=== PATIENT | male | born 1950 | race Caucasian/White ===

== ENCOUNTER 2017-10-28 15:01 | Emergency (ER) | payer MEDICARE, MEDICAID ==
[~2017-10-28] VITALS: Ht 180.3 cm; Wt 75.0 kg
[2017-10-28] MEDS ORDERED: ACETAMINOPHEN 500 MG TABLET ONE (15:38)
[2017-10-28 15:52] LABS: BASOPHILS # (AUTO) 0.04 x10^3/uL (0-0.1); BASOPHILS % (AUTO) 1 % (0-1); EOSINOPHILS # (AUTO) 0.18 x10^3/uL (0-0.4); EOSINOPHILS % (AUTO) 3 % (1-7); LYMPHOCYTES # (AUTO) 2.04 x10^3/uL (1-3.4); LYMPHOCYTES % (AUTO) 33 % (22-44); MD NO; MEAN CORPUSCULAR HEMOGLOBIN 32.8 pg (27.5-34.5); MEAN CORPUSCULAR HGB CONC 34.2 g/dL (33.2-36.2); MEAN CORPUSCULAR VOLUME 95.9 fL (81-97); MEAN PLATELET VOLUME 7.8 fL (7.4-10.4); MONOCYTES # (AUTO) 0.54 x10^3/uL (0.2-0.8); MONOCYTES % (AUTO) 9 % (2-9); NEUTROPHILS # (AUTO) 3.32 x10^3/uL (1.8-6.8); NEUTROPHILS % (AUTO) 54 % (42-75); PLATELET COUNT 352 x10^3/uL (130-400); RED BLOOD COUNT 4.65 x10^6/uL (4.38-5.82); RED CELL DISTRIBUTION WIDTH 13.1 % (9.4-14.8)
[2017-10-28 15:59] LABS: ALBUMIN 4.2 g/dL (3.4-5.0); ANION GAP 7 mmol/L (5-15); CALCIUM 8.8 mg/dL (8.5-10.1); CHLORIDE 115 mmol/L (98-107)
[2017-10-28] MEDS ORDERED: ACETAMINOPHEN 500 MG TABLET PO ONE (16:00)
[2017-10-28 16:05] LABS: CREATININE 1.14 mg/dL (0.7-1.3); TROPONIN I < 0.015 ng/mL (0.000-0.045)
[2017-10-28 16:32] VITALS: BP 137/78
== END 2017-10-28 17:19 | disposition home or self-care (01) ==
LOC: ED 16:50
DX: M25.512 Pain in left shoulder (principal); M79.622 Pain in left upper arm
CPT/HCPCS: 36415; 71045; 72050; 80048; 82040; 84484; 85025; 93005; 99285

== ENCOUNTER 2017-11-14 03:06 | Emergency (ER) | payer MEDICARE, MEDICAID ==
[~2017-11-14] VITALS: Ht 180.3 cm; Wt 75.0 kg
[2017-11-14 03:15] VITALS: BP 158/88
[2017-11-14] MEDS ORDERED: KETOROLAC 30 MG/1 ML ONE (03:21)
[2017-11-14] MEDS ORDERED: HALOPERIDOL 5 MG/ML ONE (03:21)
[2017-11-14] MEDS ORDERED: KETOROLAC 30 MG/1 ML IM ONE (03:30)
[2017-11-14] MEDS ORDERED: HALOPERIDOL 5 MG/ML IM ONE (03:30)
== END 2017-11-14 04:47 | disposition home or self-care (01) ==
LOC: ED 04:17
DX: M79.652 Pain in left thigh (principal); M25.562 Pain in left knee; Z72.9 Problem related to lifestyle, unspecified; Z87.891 Personal history of nicotine dependence; Z21 Asymptomatic human immunodeficiency virus [HIV] infection status
CPT/HCPCS: 96372; 99284; J1630; J1885

== ENCOUNTER 2018-03-13 09:45 | Emergency (ER) | payer MEDICARE, MEDICAID ==
[~2018-03-13] VITALS: Ht 180.3 cm; Wt 72.7 kg
[2018-03-13 09:47] VITALS: BP 137/98
[2018-03-13] MEDS ORDERED: DIAZEPAM 5 MG TABLET ONE (10:13)
[2018-03-13] MEDS ORDERED: KETOROLAC 30 MG/1 ML ONE (10:13)
--- NOTE | 2018-03-13 10:20 | NUR ---
patient safe in [facility], has refused valium stating "that shit doesn't even touch me anymore," patient going to xray via gurney.
[2018-03-13] MEDS ORDERED: DIAZEPAM 5 MG TABLET PO ONE (10:30)
[2018-03-13] MEDS ORDERED: KETOROLAC 30 MG/1 ML IM ONE (10:30)
== END 2018-03-13 11:29 | disposition home or self-care (01) ==
LOC: ED 10:20
DX: S16.1XXA Strain of muscle, fascia and tendon at neck level, initial encounter (principal); Z87.891 Personal history of nicotine dependence; Z79.899 Other long term (current) drug therapy; Z21 Asymptomatic human immunodeficiency virus [HIV] infection status; Z72.9 Problem related to lifestyle, unspecified; X58.XXXA Exposure to other specified factors, initial encounter; Y93.89 Activity, other specified; Y92.89 Other specified places as the place of occurrence of the external cause; Y99.8 Other external cause status
CPT/HCPCS: 72050; 96372; 99283; J1885; 99285

== ENCOUNTER 2019-02-27 10:03 | Emergency (ER) | payer MEDICAID, MEDICARE ==
[~2019-02-27] VITALS: Ht 180.3 cm; Wt 75.0 kg
--- NOTE | 2019-02-27 11:09 | NUR ---
utility aide: Pt to ed room 24 in NAD from lobby at this time
[2019-02-27 11:11] LABS: BASOPHILS # (AUTO) 0.05 x10^3/uL (0-0.1); BASOPHILS % (AUTO) 1 % (0-1); EOSINOPHILS % (AUTO) 4 % (1-7); LYMPHOCYTES # (AUTO) 2.05 x10^3/uL (1-3.4); LYMPHOCYTES % (AUTO) 27 % (22-44); MD NO; MEAN CORPUSCULAR HEMOGLOBIN 32.6 pg (27.5-34.5); MEAN CORPUSCULAR HGB CONC 33.2 g/dL (33.2-36.2); MEAN PLATELET VOLUME 7.9 fL (7.4-10.4); MONOCYTES # (AUTO) 0.61 x10^3/uL (0.2-0.8); MONOCYTES % (AUTO) 8 % (2-9); NEUTROPHILS # (AUTO) 4.48 x10^3/uL (1.8-6.8); NEUTROPHILS % (AUTO) 60 % (42-75); PLATELET COUNT 365 x10^3/uL (130-400); RED BLOOD COUNT 5.03 x10^6/uL (4.38-5.82); RED CELL DISTRIBUTION WIDTH 13.2 % (9.4-14.8)
[2019-02-27 11:21] LABS: ALBUMIN 4.1 g/dL (3.4-5.0); ANION GAP 8 mmol/L (5-15); CALCIUM 9.4 mg/dL (8.5-10.1); CHLORIDE 110 mmol/L (98-107); CREATININE 1.05 mg/dL (0.7-1.3)
--- NOTE | 2019-02-27 11:30 | NUR ---
PT TO ED WITH HARDING AFTER SEIZURE THIS AM AT 0430, STATES HE GETS SEVERE HARDING AFTER SEIZURES. HAS TAKEN "SO MUCH, A LOT, LIKE 15 TYLENOL". ALSO STATES HE HAS BEEN INCONTINENT FOR THE LAST 9MO AND WEARS DIAPERS BUT IS NOT SURE WHY AND HAS NOT SEEN MD ABOUT IT, STATES "I DON'T WANT ANY TESTS THOUGH, I'M FINE, I'LL GET UP AND GO". MD NOTIFIED. CALL VINI WOODARD.
[2019-02-27] MEDS ORDERED: DEXAMETHASONE 4 MG/ML, 1ML PO ONE (12:00)
[2019-02-27] MEDS ORDERED: KETOROLAC 30 MG/1 ML IM ONE (12:00)
[2019-02-27] MEDS ORDERED: PROMETHAZINE 25 MG/ML, 1ML IM ONE (12:00)
[2019-02-27] MEDS ORDERED: PROMETHAZINE 25 MG/ML, 1ML ONE (12:38)
[2019-02-27] MEDS ORDERED: DEXAMETHASONE 4 MG TABLET ONE (12:38)
[2019-02-27] MEDS ORDERED: KETOROLAC 60 MG/2 ML ONE (12:38)
--- NOTE | 2019-02-27 12:40 | NUR ---
pt returned from CT
[2019-02-27] MEDS ORDERED: DEXAMETHASONE 4 MG/ML, 5ML ONE (12:49)
--- NOTE | 2019-02-27 13:30 | NUR ---
CICI RN AT BEDSIDE FOR ASSIST WITH STRAIGHT CATH
--- NOTE | 2019-02-27 13:39 | NUR ---
URINE SAMPLE WALKED TO LAB
[2019-02-27 13:45] LABS: MICROSCOPIC NOT IND
[2019-02-27 13:48] LABS: CULTURE INDICATED? NO
[2019-02-27] MEDS ORDERED: HYDROcodone/APAP 5/325 TABLET ONE (14:10)
[2019-02-27] MEDS ORDERED: HYDROcodone/APAP 5/325 TABLET PO ONE (14:30)
[2019-02-27 15:33] VITALS: BP 135/88
== END 2019-02-27 15:34 | disposition home or self-care (01) ==
LOC: ED 15:20
DX: R51 Headache (principal); R32 Unspecified urinary incontinence; G40.909 Epilepsy, unspecified, not intractable, without status epilepticus; Z87.891 Personal history of nicotine dependence
CPT/HCPCS: 36415; 70450; 80048; 81003; 82040; 85025; 96372; 99284; J1100; J1885; J2550

== ENCOUNTER 2019-07-05 15:27 | Emergency (ER) | payer MEDICARE, MEDICAID ==
[~2019-07-05] VITALS: Ht 170.2 cm; Wt 68.2 kg
[~2019-07-05 15:27] MED LIST: BACL5TAB PO; BICT1TAB PO; CEFD300C37 PO; GABA600T PO; GABAPENTIN; IBUP-1223 PO; IBUPROFEN; KEPPRA; LEVE500T53 PO; NITR100C6 PO
[2019-07-05] MEDS ORDERED: KETOROLAC 30 MG/1 ML IM ONE (15:30)
[2019-07-05] MEDS ORDERED: KETOROLAC 60 MG/2 ML ONE (15:43)
[2019-07-05 15:57] LABS: BASOPHILS # (AUTO) 0.03 x10^3/uL (0-0.1); BASOPHILS % (AUTO) 0 % (0-1); EOSINOPHILS # (AUTO) 0.19 x10^3/uL (0-0.4); EOSINOPHILS % (AUTO) 2 % (1-7); LYMPHOCYTES # (AUTO) 2.29 x10^3/uL (1-3.4); LYMPHOCYTES % (AUTO) 25 % (22-44); MD NO; MEAN CORPUSCULAR HEMOGLOBIN 31.4 pg (27.5-34.5); MEAN CORPUSCULAR HGB CONC 33.2 g/dL (33.2-36.2); MEAN CORPUSCULAR VOLUME 94.5 fL (81-97); MEAN PLATELET VOLUME 7.7 fL (7.4-10.4); MONOCYTES # (AUTO) 0.44 x10^3/uL (0.2-0.8); MONOCYTES % (AUTO) 5 % (2-9); NEUTROPHILS # (AUTO) 6.38 x10^3/uL (1.8-6.8); NEUTROPHILS % (AUTO) 68 % (42-75); PLATELET COUNT 460 x10^3/uL (130-400); RED BLOOD COUNT 5.05 x10^6/uL (4.38-5.82); RED CELL DISTRIBUTION WIDTH 13.7 % (9.4-14.8)
[2019-07-05 16:09] LABS: ALANINE AMINOTRANSFERASE 21 U/L (12-78); ALBUMIN 3.9 g/dL (3.4-5.0); ANION GAP 7 mmol/L (5-15); CALCIUM 9.9 mg/dL (8.5-10.1); CHLORIDE 111 mmol/L (98-107); CREATININE 1.11 mg/dL (0.7-1.3)
[2019-07-05 16:14] LABS: ALKALINE PHOSPHATASE 100 U/L (45-117); BILIRUBIN,TOTAL 0.4 mg/dL (0.2-1.0); TOTAL PROTEIN 8.1 g/dL (6.4-8.2); TROPONIN I < 0.015 ng/mL (0.000-0.045)
--- NOTE | 2019-07-05 16:28 | NUR ---
UA OBTAINED SC PER PROTOCOL. PT TOLERATED WELL. SENT TO LAB.
[2019-07-05 16:57] LABS: MICROSCOPIC NOT IND
[2019-07-05 17:00] LABS: CULTURE INDICATED? NO
--- NOTE | 2019-07-05 17:17 | NUR ---
Filiberto RN. Pt up to rr, steady gait. Up for ERMD recheck.
[2019-07-05 17:37] VITALS: BP 142/89
== END 2019-07-05 17:40 | disposition home or self-care (01) ==
LOC: ED 16:27
DX: M94.0 Chondrocostal junction syndrome [Tietze] (principal); R07.2 Precordial pain; R94.31 Abnormal electrocardiogram [ECG] [EKG]; Z87.891 Personal history of nicotine dependence; Z21 Asymptomatic human immunodeficiency virus [HIV] infection status; Z89.619 Acquired absence of unspecified leg above knee
CPT/HCPCS: 36415; 71045; 80053; 81003; 84484; 85025; 93005; 96372; 99285; J1885

== ENCOUNTER 2019-08-26 07:38 | Emergency (ER) | payer MEDICARE, MEDICAID ==
[~2019-08-26] VITALS: Ht 180.3 cm; Wt 65.0 kg
[2019-08-26 07:52] VITALS: BP 121/77
[2019-08-26] MEDS ORDERED: HYDROmorphone 1 MG/ML, 1ML INJ ONE (08:27)
--- NOTE | 2019-08-26 08:31 | NUR ---
PT MEDICATED PER MAR.
[2019-08-26 08:34] LABS: BASOPHILS # (AUTO) 0.04 x10^3/uL (0-0.1); BASOPHILS % (AUTO) 1 % (0-1); EOSINOPHILS # (AUTO) 0.25 x10^3/uL (0-0.4); EOSINOPHILS % (AUTO) 4 % (1-7); LYMPHOCYTES # (AUTO) 2.26 x10^3/uL (1-3.4); LYMPHOCYTES % (AUTO) 37 % (22-44); MD NO; MEAN CORPUSCULAR HGB CONC 33.5 g/dL (33.2-36.2); MEAN CORPUSCULAR VOLUME 95.6 fL (81-97); MEAN PLATELET VOLUME 7.3 fL (7.4-10.4); MONOCYTES % (AUTO) 10 % (2-9); NEUTROPHILS # (AUTO) 3.02 x10^3/uL (1.8-6.8); NEUTROPHILS % (AUTO) 49 % (42-75); PLATELET COUNT 423 x10^3/uL (130-400); RED BLOOD COUNT 4.56 x10^6/uL (4.38-5.82); RED CELL DISTRIBUTION WIDTH 13.2 % (9.4-14.8)
[2019-08-26 08:41] LABS: ALANINE AMINOTRANSFERASE 26 U/L (12-78); ALBUMIN 3.7 g/dL (3.4-5.0); ANION GAP 9 mmol/L (5-15); CALCIUM 9.2 mg/dL (8.5-10.1); CHLORIDE 112 mmol/L (98-107); CREATININE 1.05 mg/dL (0.7-1.3)
[2019-08-26 08:47] LABS: ALKALINE PHOSPHATASE 129 U/L (45-117); BILIRUBIN,TOTAL 0.7 mg/dL (0.2-1.0); TOTAL PROTEIN 7.5 g/dL (6.4-8.2)
[2019-08-26] MEDS ORDERED: HYDROmorphone 1 MG/ML, 1ML INJ IM ONE (09:00)
[2019-08-26] MEDS ORDERED: DEXAMETHASONE 4 MG/ML, 1ML IM ONE (09:30)
[2019-08-26] MEDS ORDERED: DEXAMETHASONE 4 MG TABLET ONE (09:32)
[2019-08-26] MEDS ORDERED: DEXAMETHASONE 4 MG/ML, 1ML PO ONE (10:00)
--- NOTE | 2019-08-26 10:31 | NUR ---
Patient given discharge instructions and they have confirmed that they understand the instructions. Patient ambulatory with steady gait.
== END 2019-08-26 10:32 | disposition home or self-care (01) ==
LOC: ED 08:59
DX: M54.31 Sciatica, right side (principal); M79.604 Pain in right leg
CPT/HCPCS: 36415; 80053; 85025; 96372; 99283; J1100; J1170

== ENCOUNTER 2019-10-19 17:54 | Emergency (ER) | payer MEDICARE, MEDICAID ==
[~2019-10-19] VITALS: Ht 180.3 cm; Wt 65.9 kg
[2019-10-19 19:32] VITALS: BP 117/86
--- NOTE | 2019-10-19 20:15 | NUR ---
PT STATES, "IT'S MY SCIATICA. IT HURTS SO BAD RIGHT NOW. I TOOK TWO THOUSAND MILIGRAMS OF IBUPROFEN THIS MORNING AND IT DIDN'T EVEN TOUCH THE PAIN." PT EDUCATED ON PROPER OTC MEDICATION DOSING, AND POSSIBLE NEGATIVE EFFECTS OF SUCH HIGH DOSES. PT UNABLE TO VERBALIZE UNDERSTANDING. DENIES ANY FURTHER NEEDS OR CONCERNS, CALL LIGHT IN REACH.
[2019-10-19] MEDS ORDERED: ACETAMINOPHEN 325 MG TABLET ONE (21:25)
[2019-10-19] MEDS ORDERED: CYCLOBENZAPRINE 10 MG TABLET ONE (21:25)
[2019-10-19] MEDS ORDERED: CYCLOBENZAPRINE 10 MG TABLET PO ONE (21:30)
[2019-10-19] MEDS ORDERED: ACETAMINOPHEN 325 MG TABLET PO ONE (21:30)
== END 2019-10-19 21:53 | disposition home or self-care (01) ==
LOC: ED 21:15
DX: M54.31 Sciatica, right side (principal); M79.604 Pain in right leg; M19.90 Unspecified osteoarthritis, unspecified site; Z21 Asymptomatic human immunodeficiency virus [HIV] infection status; Z87.891 Personal history of nicotine dependence
CPT/HCPCS: 99283; J7512

== ENCOUNTER 2019-10-21 10:35 | Emergency (ER) | payer MEDICAID, MEDICARE ==
[~2019-10-21] VITALS: Ht 180.3 cm; Wt 65.8 kg
--- NOTE | 2019-10-21 10:59 | NUR ---
JEFF IN ROOM PLAN XR CMS INTACT.
--- NOTE | 2019-10-21 12:07 | NUR ---
RECHECK. PT RESTING ON STRETCHER VSS NAD.
--- NOTE | 2019-10-21 13:35 | NUR ---
to and from ct. asking for coca cola. nad. as
--- NOTE | 2019-10-21 14:19 | NUR ---
ct neg. recheck. as
[2019-10-21 15:00] VITALS: BP 144/72
== END 2019-10-21 15:28 | disposition home or self-care (01) ==
LOC: ED 15:20
DX: S70.01XA Contusion of right hip, initial encounter (principal); W18.30XA Fall on same level, unspecified, initial encounter; Y93.89 Activity, other specified; Y92.89 Other specified places as the place of occurrence of the external cause; Y99.8 Other external cause status
CPT/HCPCS: 99284

== ENCOUNTER 2019-11-07 09:19 | Emergency (ER) | payer MEDICARE ==
[~2019-11-07] VITALS: Ht 180.3 cm; Wt 68.0 kg
--- NOTE | 2019-11-07 09:35 | NUR ---
KELLIE FARMER, PT WITH C/O R HIP PAIN. PT WITH RECENT DX OF SIATICA WAS ON STEROIDS WITH NO RELIEF. PT DECLINES PAIN MEDS CLINICAL REHAB SPECIALIST OR IV. PT DID HAVE FALL 2 WEEKS AGO, WITH INJURY TO R HIP. PT COMPLETED ALL PRESCRIPTIONS, STILL HAVING PAIN.
[2019-11-07] MEDS ORDERED: KETOROLAC 30 MG/1 ML ONE (09:47)
[2019-11-07] MEDS ORDERED: KETOROLAC 30 MG/1 ML IM ONE (10:00)
--- NOTE | 2019-11-07 10:30 | NUR ---
PT TO CT
--- NOTE | 2019-11-07 11:30 | NUR ---
PT PLACED FOR RECHECK
[2019-11-07 12:29] VITALS: BP 136/85
--- NOTE | 2019-11-07 13:30 | NUR ---
PT ASSISTED TO WHEELCHAIR, PT WITH MINIMAL ASSIST.
--- NOTE | 2019-11-07 13:46 | NUR ---
Patient given discharge instructions and Rx, they have confirmed that they understand the instructions. Patient ambulatory with steady gait.
== END 2019-11-07 14:02 | disposition home or self-care (01) ==
LOC: ED 10:39
DX: S16.1XXA Strain of muscle, fascia and tendon at neck level, initial encounter (principal); M47.812 Spondylosis without myelopathy or radiculopathy, cervical region; S39.012A Strain of muscle, fascia and tendon of lower back, initial encounter; M47.816 Spondylosis without myelopathy or radiculopathy, lumbar region; Z21 Asymptomatic human immunodeficiency virus [HIV] infection status; W18.30XA Fall on same level, unspecified, initial encounter; Y93.89 Activity, other specified; Y92.89 Other specified places as the place of occurrence of the external cause; Y99.8 Other external cause status
CPT/HCPCS: 72050; 72110; 96372; 99284; J1885

== ENCOUNTER 2019-11-09 10:23 | Emergency (ER) | payer MEDICARE ==
[~2019-11-09] VITALS: Ht 180.3 cm; Wt 60.6 kg
[2019-11-09 10:23] VITALS: BP 100/49
--- NOTE | 2019-11-09 11:29 | NUR ---
ER PROVIDER (JEANINE MIMS) AT BS
--- NOTE | 2019-11-09 11:48 | NUR ---
Patient given discharge instructions and they have confirmed that they understand the instructions. Patient to DC desk via personal WC.
== END 2019-11-09 11:50 | disposition home or self-care (01) ==
LOC: ED 10:29
DX: M25.551 Pain in right hip (principal); M25.571 Pain in right ankle and joints of right foot; G89.29 Other chronic pain; Z21 Asymptomatic human immunodeficiency virus [HIV] infection status; M19.90 Unspecified osteoarthritis, unspecified site
CPT/HCPCS: 99283

== ENCOUNTER 2019-11-10 11:44 | Emergency (ER) | payer MEDICARE ==
[~2019-11-10] VITALS: Ht 180.3 cm; Wt 59.1 kg
[2019-11-10 11:50] VITALS: BP 104/60
--- NOTE | 2019-11-10 11:50 | NUR ---
pt BIB [facility] from home c/o R leg pain x3 weeks. per [facility] 911 was contcted by pt case management director who states that the patient was too stubborn and needs to be admitted. pt reports that he has had pain x3 weeks after a fall. pt reports that he had a fall at home this AM but denies LOC. pt has a small abrasion to top of his head. no bleeding. pt is A&O x4. per [facility], pt was able to transfer to his by himself on scene. pt is able to transfer from [facility] to [facility] on admit. 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 no family at bedside case management director: Joie,
--- NOTE | 2019-11-10 12:05 | NUR ---
report to Aristides ESPOSITO
[2019-11-10] MEDS ORDERED: CYCLOBENZAPRINE 10 MG TABLET ONE (12:37)
[2019-11-10] MEDS ORDERED: ACETAMINOPHEN 500 MG TABLET ONE (12:37)
--- NOTE | 2019-11-10 12:55 | NUR ---
Patient/Caregiver given discharge instructions and they have confirmed that they understand the instructions. Patient ambulatory with steady gait.
[2019-11-10] MEDS ORDERED: CYCLOBENZAPRINE 10 MG TABLET PO ONE (13:00)
[2019-11-10] MEDS ORDERED: ACETAMINOPHEN 500 MG TABLET PO ONE (13:00)
== END 2019-11-10 12:56 | disposition home or self-care (01) ==
LOC: ED 12:05
DX: M25.511 Pain in right shoulder (principal); M25.551 Pain in right hip; M79.604 Pain in right leg; Z21 Asymptomatic human immunodeficiency virus [HIV] infection status; Z89.612 Acquired absence of left leg above knee
CPT/HCPCS: 99283

== ENCOUNTER 2020-01-10 20:59 | Emergency (ER) | payer MEDICARE, MEDICAID ==
[~2020-01-10] VITALS: Ht 180.3 cm; Wt 72.9 kg
--- NOTE | 2020-01-10 20:59 | NUR ---
PT BIB [facility], FOUND BY NEIGHBOR BANGING HEAD AGAINST POLE. LEGAL HOLD STARTED BY RPLana. PT HAS QUARTER SIZED OPEN WOUND ON MIDDLE FOREHEAD, BLOODY DRAINAGE NOTED. PT DENIES PAIN, STATES HE HAS TRAINED HIMSELF TO NEVER FEEL PAIN. PT LIVES ALONE IN APARTMENT COMPLEX. PT IS COOPERATIVE BUT AGGITATED UPON ARRIVAL WITH AUDITORY AND VISUAL HALLUCINATIONS STATING HE SEES BUGS ON THE HECTOR AND CEILING HERE AT AT HOME. PT TOLD RN AND MD HE TOOK "SCALDING HOT WATER TO MY R THIGH TO SCRUB OFF THE BUGS". NO WOUND NOTED TO AREA. PT ALSO STATES HE IS SUICIDAL WITH PLAN "TO TAKE TWO POLES TOGETHER AND BASH MY FACE INTO IT, I CANNOT FELL PAIN". PT HAS FLIGHT OF IDEAS AND WORD SALAD. PT NOT ABLE TO CLEARLY STATE WHY HE IS AT THE HOSPITAL. PT PLACED IN HOSPITAL GOWN, ALL BELONGINGS TAKEN OUT OF ROOM, MACE FOUND ON BELT, SECURITY NOTIFIED. GARAGE DOORS CLOSED.
--- NOTE | 2020-01-10 21:27 | NUR ---
Note williamalice in EDM - 01/10/20 at 2236 by GLORIA CC OF VOMITING BLOOD, LAST EPISODE APPROX 30 MIN BEFORE ARRIVAL. PT STATES HE HAS BEEN VOMITING BLOOD FOR 2 WEEKS ON AND OFF. PT STATES HE HAD 2 BEERS BEFORE ARRIVAL. PT SHAKY AND SWEATY. PLACED ON PHLEBOTOMY SERVICES TECHNICIAN. BED RAILS UP. SEIZURE PRECAUTIONS IN PLACE.
[2020-01-10 21:50] LABS: BASOPHILS % (AUTO) 1 % (0-1); EOSINOPHILS % (AUTO) 2 % (1-7); LYMPHOCYTES % (AUTO) 22 % (22-44); MEAN CORPUSCULAR HGB CONC 33.4 g/dL (33.2-36.2); MEAN PLATELET VOLUME 7.3 fL (7.4-10.4); MONOCYTES % (AUTO) 11 % (2-9); NEUTROPHILS % (AUTO) 65 % (42-75); PLATELET COUNT 372 x10^3/uL (130-400); RED CELL DISTRIBUTION WIDTH 13.9 % (9.4-14.8)
[2020-01-10 21:54] LABS: MD NO
[2020-01-10 22:02] LABS: ALANINE AMINOTRANSFERASE 34 U/L (12-78); ALBUMIN 4.2 g/dL (3.4-5.0); ANION GAP 7 mmol/L (5-15); CALCIUM 9.2 mg/dL (8.5-10.1); CHLORIDE 115 mmol/L (98-107); CREATININE 0.97 mg/dL (0.7-1.3); SALICYLATE LEVEL 3.9 mg/dL (2.8-20.0)
[2020-01-10 22:12] LABS: ALKALINE PHOSPHATASE 119 U/L (45-117); BILIRUBIN,TOTAL 0.7 mg/dL (0.2-1.0); TOTAL PROTEIN 7.5 g/dL (6.4-8.2)
--- NOTE | 2020-01-10 23:39 | NUR ---
PT UNABLE TO GIVE URINE SAMPLE.
[2020-01-11 00:14] LABS: AMPHETAMINE SCREEN, URINE Negative (Negative); BARBITURATE SCREEN, URINE Negative (Negative); BENZODIAZEPINE SCREEN, URINE Negative (Negative); CANNABINOID SCREEN, URINE Negative (Negative); COCAINE SCREEN, URINE Negative (Negative); METHADONE SCREEN, URINE Negative (Negative); OPIATE SCREEN, URINE Negative (Negative)
--- NOTE | 2020-01-11 00:17 | NUR ---
PT STRAIGHT CATH FOR TOX SCREEN. APPROX 25O ML CONCENTRATED URINE COLLECTED. PT TOLERATED WELL, DENIES PAIN
--- NOTE | 2020-01-11 01:00 | NUR ---
PT RESTING IN [facility]. NO NEEDS AT THIS TIME
--- NOTE | 2020-01-11 02:07 | NUR ---
PT RESTING IN [facility]. DENIES NEEDS. SITTER AT DOORWAY
--- NOTE | 2020-01-11 03:00 | NUR ---
PT RESTING IN [facility], [facility]
--- NOTE | 2020-01-11 03:49 | NUR ---
Spoke with Minerva from [facility]; she states there are no beds available at this time, therefore patient will be placed on pending status.
--- NOTE | 2020-01-11 04:03 | NUR ---
PT WITH VISUAL HALLUCINATIONS SCREAMING ABOUT 2 SPIDERS IN ROOM CRAWLING ON HIS HEAD SAYING "MEOW".
--- NOTE | 2020-01-11 04:40 | NUR ---
LEON FROM [facility] CALLED FOR REPORT
--- NOTE | 2020-01-11 04:45 | NUR ---
MT: KATIE AT [facility] CALLED AND ACCEPTED PT FOR 0600. ACCEPTING DR IS DR MCNALLY.
[2020-01-11 05:39] VITALS: BP 141/66
--- NOTE | 2020-01-11 05:40 | NUR ---
PT HAVING VISUAL HALLUCINATIONS ABOUT SPIDERS. VSS. 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
== END 2020-01-11 06:09 ==
LOC: ED 22:34
DX: F22 Delusional disorders (principal); F32.1 Major depressive disorder, single episode, moderate; M19.90 Unspecified osteoarthritis, unspecified site; F17.200 Nicotine dependence, unspecified, uncomplicated; Z21 Asymptomatic human immunodeficiency virus [HIV] infection status
CPT/HCPCS: 36415; 80053; 80307; 84443; 85025; 99285

== ENCOUNTER 2020-03-04 14:37 | Emergency (ER) | payer MEDICARE, MEDICAID ==
[~2020-03-04] VITALS: Ht 180.3 cm; Wt 74.0 kg
[2020-03-04] MEDS ORDERED: ASPIRIN 81 MG TABLET CHEW PO ONE (15:30)
[2020-03-04 15:41] LABS: BASOPHILS % (AUTO) 2 % (0-1); EOSINOPHILS % (AUTO) 5 % (1-7); LYMPHOCYTES % (AUTO) 27 % (22-44); MEAN CORPUSCULAR HEMOGLOBIN 32.8 pg (27.5-34.5); MEAN CORPUSCULAR HGB CONC 34.7 g/dL (33.2-36.2); MEAN PLATELET VOLUME 6.9 fL (7.4-10.4); MONOCYTES % (AUTO) 10 % (2-9); NEUTROPHILS % (AUTO) 57 % (42-75); PLATELET COUNT 428 x10^3/uL (130-400); RED BLOOD COUNT 4.41 x10^6/uL (4.38-5.82); RED CELL DISTRIBUTION WIDTH 13.3 % (9.4-14.8)
[2020-03-04 15:47] LABS: MD NO
[2020-03-04 15:50] LABS: ALANINE AMINOTRANSFERASE 22 U/L (12-78); ALBUMIN 3.8 g/dL (3.4-5.0); ANION GAP 7 mmol/L (5-15); CALCIUM 8.8 mg/dL (8.5-10.1); CHLORIDE 116 mmol/L (98-107); CREATININE 1.23 mg/dL (0.7-1.3)
[2020-03-04 15:54] LABS: ALKALINE PHOSPHATASE 121 U/L (45-117); BILIRUBIN,TOTAL 0.4 mg/dL (0.2-1.0); TOTAL PROTEIN 7.4 g/dL (6.4-8.2); TROPONIN I < 0.015 ng/mL (0.000-0.045)
[2020-03-04 16:31] VITALS: BP 125/82
--- NOTE | 2020-03-04 16:31 | NUR ---
THIS FLOAT RN AT BEDSIDE TO DC PT. PT VERBALIZED UNDERSTANDING TO DC INSTRUCTIONS. PT WHEELED SELF TO CHECKOUT.
== END 2020-03-04 16:34 | disposition home or self-care (01) ==
LOC: ED 16:29
DX: R07.89 Other chest pain (principal); Z87.891 Personal history of nicotine dependence; Z89.619 Acquired absence of unspecified leg above knee
CPT/HCPCS: 36415; 71045; 80053; 84484; 85025; 93005; 99285

== ENCOUNTER 2020-03-20 08:17 | Emergency (ER) | payer MEDICARE, MEDICAID ==
[~2020-03-20] VITALS: Ht 180.3 cm; Wt 68.0 kg
--- NOTE | 2020-03-20 08:22 | NUR ---
69 YR OLD MALE ARRIVED VIA EMS. PER REPORT PT WITH LESS THAN 24 HOUR EXACERBATION OF CHRONIC NECK PAIN. PT ARRIVES WITH IV IN RIGHT HAND. PT VAGUE ON ANSWERING QUESTIONS. DAYNA LICONA AT BEDSIDE TO JOSEPH PT
[2020-03-20] MEDS ORDERED: DIAZEPAM 5 MG TABLET PO ONE (08:30)
--- NOTE | 2020-03-20 08:36 | NUR ---
PT TO CT VIA ARVIND
--- NOTE | 2020-03-20 08:44 | NUR ---
REPOR TO ROSEMARIE ESPOSITO
--- NOTE | 2020-03-20 09:46 | NUR ---
LAB TO REDRAW PT CBC. 1ST SAMPLE CLOTTED IN TUBE.
[2020-03-20 09:47] LABS: ANION GAP 4 mmol/L (5-15); CALCIUM 8.9 mg/dL (8.5-10.1); CHLORIDE 114 mmol/L (98-107)
[2020-03-20 09:51] LABS: CREATININE 0.96 mg/dL (0.7-1.3); TROPONIN I < 0.015 ng/mL (0.000-0.045)
[2020-03-20 10:13] LABS: BASOPHILS % (AUTO) 1 % (0-1); EOSINOPHILS % (AUTO) 4 % (1-7); LYMPHOCYTES % (AUTO) 21 % (22-44); MEAN CORPUSCULAR HEMOGLOBIN 32.4 pg (27.5-34.5); MEAN CORPUSCULAR HGB CONC 34.2 g/dL (33.2-36.2); MEAN PLATELET VOLUME 6.8 fL (7.4-10.4); MONOCYTES % (AUTO) 9 % (2-9); NEUTROPHILS % (AUTO) 65 % (42-75); PLATELET COUNT 503 x10^3/uL (130-400); RED BLOOD COUNT 4.62 x10^6/uL (4.38-5.82); RED CELL DISTRIBUTION WIDTH 12.5 % (9.4-14.8)
[2020-03-20 10:28] LABS: MD NO
[2020-03-20 10:30] VITALS: BP 132/83
[2020-03-20] MEDS ORDERED: DIAZEPAM 5 MG TABLET ONE (10:43)
== END 2020-03-20 10:53 | disposition home or self-care (01) ==
LOC: ED 09:27
DX: S16.1XXA Strain of muscle, fascia and tendon at neck level, initial encounter (principal); M54.12 Radiculopathy, cervical region; G89.29 Other chronic pain; R94.31 Abnormal electrocardiogram [ECG] [EKG]; Z21 Asymptomatic human immunodeficiency virus [HIV] infection status; Z88.6 Allergy status to analgesic agent; X58.XXXA Exposure to other specified factors, initial encounter; Y93.89 Activity, other specified; Y92.89 Other specified places as the place of occurrence of the external cause; Y99.8 Other external cause status
CPT/HCPCS: 36415; 72125; 80048; 84484; 85025; 93005; 99285

== ENCOUNTER 2020-04-08 17:24 | Emergency (ER) | payer MEDICARE, MEDICAID ==
[~2020-04-08] VITALS: Ht 180.3 cm; Wt 70.4 kg
--- NOTE | 2020-04-08 18:11 | NUR ---
PT PLACED ON ALL ROOM MONITORING. EKG COMPLETED ON ARRIVAL. RESP DROPLET ISOLATION CART AND SIGNAGE AT DOORWAY. CALL LIGHT WITHIN REACH, WARM BLANKET PROVIDED.
--- NOTE | 2020-04-08 18:25 | NUR ---
ERP IN TO SEE PT.
--- NOTE | 2020-04-08 18:41 | NUR ---
LAB IN TO DRAW.
--- NOTE | 2020-04-08 19:11 | NUR ---
REPORT TO MISSY ESPOSITO, TRANSFER OF CARE AT THIS TIME.
[2020-04-08 19:18] LABS: BASOPHILS % (AUTO) 1 % (0-1); EOSINOPHILS % (AUTO) 3 % (1-7); LYMPHOCYTES % (AUTO) 35 % (22-44); MEAN CORPUSCULAR HEMOGLOBIN 32.2 pg (27.5-34.5); MEAN CORPUSCULAR HGB CONC 34.5 g/dL (33.2-36.2); MEAN PLATELET VOLUME 8.1 fL (7.4-10.4); MONOCYTES % (AUTO) 11 % (2-9); NEUTROPHILS % (AUTO) 51 % (42-75); PLATELET COUNT 394 x10^3/uL (130-400); RED BLOOD COUNT 4.71 x10^6/uL (4.38-5.82); RED CELL DISTRIBUTION WIDTH 12.6 % (9.4-14.8)
[2020-04-08 19:20] LABS: MD NO
[2020-04-08 19:27] LABS: ALBUMIN 3.9 g/dL (3.4-5.0); ANION GAP 8 mmol/L (5-15); CALCIUM 9.1 mg/dL (8.5-10.1); CHLORIDE 113 mmol/L (98-107)
[2020-04-08 19:30] LABS: ALANINE AMINOTRANSFERASE 29 U/L (12-78); ALKALINE PHOSPHATASE 120 U/L (45-117); BILIRUBIN,TOTAL 0.5 mg/dL (0.2-1.0); CREATININE 0.99 mg/dL (0.7-1.3); TOTAL PROTEIN 7.4 g/dL (6.4-8.2); TROPONIN I < 0.015 ng/mL (0.000-0.045)
[2020-04-08 20:51] VITALS: BP 107/70
== END 2020-04-08 20:54 | disposition home or self-care (01) ==
LOC: ED 20:29
DX: R07.89 Other chest pain (principal); R05 Cough; I10 Essential (primary) hypertension; R94.31 Abnormal electrocardiogram [ECG] [EKG]; Z87.891 Personal history of nicotine dependence
CPT/HCPCS: 36415; 71045; 80053; 84484; 85025; 93005; 99285

== ENCOUNTER 2020-07-08 17:27 | Emergency (ER) | payer MEDICARE, MEDICAID ==
[~2020-07-08] VITALS: Ht 180.3 cm; Wt 68.1 kg
--- NOTE | 2020-07-08 17:45 | NUR ---
Pt BIB EMS for L arm weakess x 10 days. Pt has Hx of pinched nerve in neck and claims the numbness in his arm can not be related to his neck. Pt connected to ocntinious BP and O2 moniotrs, positioned for comfort, call light in reach, side rails up, VSS, NADN. EMS also informed this RN that pt took ~3000mg of ibuprofen today.
[2020-07-08] MEDS ORDERED: methylPREDNISolone SOD SUCC 125 MG/2 ML ONE (17:51)
[2020-07-08] MEDS ORDERED: KETOROLAC 30 MG/1 ML ONE (17:51)
[2020-07-08] MEDS ORDERED: KETOROLAC 30 MG/1 ML IVPush ONE (18:00)
[2020-07-08] MEDS ORDERED: methylPREDNISolone SOD SUCC 125 MG/2 ML IVPush ONE (18:00)
--- NOTE | 2020-07-08 18:08 | NUR ---
Pt to MRI via [facility].
--- NOTE | 2020-07-08 18:47 | NUR ---
Report to pablito ESPOSITO
--- NOTE | 2020-07-08 18:49 | NUR ---
REPORT FROM ETHAN AND ANNA TRANSFER OF CARE AT THIS TIME
[2020-07-08 19:40] VITALS: BP 122/74
--- NOTE | 2020-07-08 19:41 | NUR ---
Patient/Caregiver given discharge instructions and they have confirmed that they understand the instructions. Patient ambulatory with steady gait.
== END 2020-07-08 19:59 | disposition home or self-care (01) ==
LOC: ED 19:57
DX: M54.12 Radiculopathy, cervical region (principal); I10 Essential (primary) hypertension; Z87.891 Personal history of nicotine dependence; Z89.611 Acquired absence of right leg above knee
CPT/HCPCS: 72141; 96374; 96375; 99284; J1885; J2930

== ENCOUNTER 2020-11-29 15:13 | Emergency (ER) | payer MEDICARE, MEDICAID ==
[~2020-11-29] VITALS: Ht 165.1 cm; Wt 75.0 kg
--- NOTE | 2020-11-29 15:24 | NUR ---
BIB EMS AFTER PT WAS FOUND [place] THE [place]ARK TODAY AT 1430 ATTEMPTING TO HANG HIMSELF W/ SLIP KNOT ROPE FROM A TREE. PT TOLD OFFICERS HE WAS TIRED OF BENG TAKEN ADVANTAGE OF AND WANTS TO HURT HIMSELF AND OTHER PEOPLE (SPECIFICALLY [employer]). PT STATES "I'VE BEEN LOOKING FOR AN APARTMENT AND IT'S SO EXPENSIVE THEY WANT 700, 800, 1200, 3,000). PT DENIES SI/HI IN ED. STATES "IF I'M PISSED OFF AT SOMEONE I WILL USE WHAT I GOT IN MY HEAD AND WHAT I KNOW HOW TO DO". PT PLACED ON LEGAL HOLD BY [employer]. VS TRANSPORTATION ANALYST HR 105, BP 121/76, 95% RA, BS 113.
--- NOTE | 2020-11-29 15:24 | NUR ---
ERP PDR. VANBIBBER AT BEDSIDE FOR EVAL.
--- NOTE | 2020-11-29 15:30 | NUR ---
JENN, PSYCH WATER PUMP OPERATOR AT BEDSIDE FOR EVAL.
--- NOTE | 2020-11-29 15:35 | NUR ---
PERSONAL BELONGINGS (BAG 1 OF 1) PLACED IN SECURE LOCKER.
--- NOTE | 2020-11-29 15:39 | NUR ---
ROOM SECURED. SITTER AT BEDSIDE.
[2020-11-29 15:47] LABS: BASOPHILS % (AUTO) 1 % (0-1); EOSINOPHILS % (AUTO) 1 % (1-7); LYMPHOCYTES % (AUTO) 14 % (22-44); MEAN CORPUSCULAR HEMOGLOBIN 31.8 pg (27.5-34.5); MEAN CORPUSCULAR HGB CONC 34.3 g/dL (33.2-36.2); MEAN PLATELET VOLUME 7.2 fL (7.4-10.4); MONOCYTES % (AUTO) 8 % (2-9); NEUTROPHILS % (AUTO) 77 % (42-75); PLATELET COUNT 418 x10^3/uL (130-400); RED BLOOD COUNT 4.75 x10^6/uL (4.38-5.82); RED CELL DISTRIBUTION WIDTH 13.6 % (9.4-14.8)
--- NOTE | 2020-11-29 15:59 | NUR ---
PT AWARE OF NEED FOR UA. STATES HE CANNOT PROVIDE SAMPLE AT THIS TIME. EDUCATED TO URINATE IN URINAL WHEN HE FEELS THE URGE TO GO. PT VERBALIZES UNDERSTANDING. URINAL LEFT AT BEDSIDE.
[2020-11-29] MEDS ORDERED: AMLO-211 PO (16:01)
[2020-11-29] MEDS ORDERED: METO25TA35 PO (16:01)
[2020-11-29 16:16] LABS: ALANINE AMINOTRANSFERASE 18 U/L (12-78); ALBUMIN 4.2 g/dL (3.4-5.0); ANION GAP 10 mmol/L (5-15); CALCIUM 9.6 mg/dL (8.5-10.1); CHLORIDE 114 mmol/L (98-107); CREATININE 0.96 mg/dL (0.7-1.3)
[2020-11-29 16:17] LABS: ALKALINE PHOSPHATASE 121 U/L (45-117); BILIRUBIN,TOTAL 0.5 mg/dL (0.2-1.0)
[2020-11-29 16:18] LABS: SALICYLATE LEVEL < 1.7 mg/dL (2.8-20.0)
--- NOTE | 2020-11-29 17:06 | NUR ---
PT RESTING ON ARVIND. BRAXTON. SITTER REMAINS AT BEDSIDE. ROOM REMAINS SECURE.
--- NOTE | 2020-11-29 17:57 | NUR ---
PT SLEEPING ON GURANDREA. BRAXTON. SITTER REMAINS AT BEDSIDE. ROOM REMAINS SECURE.
--- NOTE | 2020-11-29 18:31 | NUR ---
PT MADE AWARE OF NEED FOR UA. PT STATES "I ONLY PEE ONCE A DAY IN THE MORNING". PT REFUSING STRAIGHT CATH UA AT THIS TIME.
--- NOTE | 2020-11-29 19:02 | NUR ---
REPORT GIVEN TO CATE PARKER. PT RESTING ON LEXII. BRAXTON. SITTER REMAINS AT BEDSIDE. ROOM REMAINS SECURE.
[2020-11-29 19:21] VITALS: BP 133/91
--- NOTE | 2020-11-29 19:24 | NUR ---
PATIENT SITTING IN BED COMFORTABLY, VSS, ROOM SECURED, PATIENT IN NO DISTRESS. PATIENT HAS NO CURRENT NEEDS AT THIS
[2020-11-29 19:39] LABS: AMPHETAMINE SCREEN, URINE Negative (Negative); BARBITURATE SCREEN, URINE Negative (Negative); BENZODIAZEPINE SCREEN, URINE Negative (Negative); CANNABINOID SCREEN, URINE Negative (Negative); COCAINE SCREEN, URINE Negative (Negative); METHADONE SCREEN, URINE Negative (Negative); OPIATE SCREEN, URINE Negative (Negative)
--- NOTE | 2020-11-29 20:36 | NUR ---
PATIENT SITTING IN BED COMFORTABLY, VSS, ROOM SECURED, PATIENT IN NO DISTRESS. PATIENT HAS NO CURRENT NEEDS AT THIS
--- NOTE | 2020-11-29 21:32 | NUR ---
PATIENT SITTING IN BED COMFORTABLY, VSS, ROOM SECURED, PATIENT IN NO DISTRESS. PATIENT HAS NO CURRENT NEEDS AT THIS
[2020-11-30] MEDS ORDERED: FLUOXETINE HCL 20 MG CAPSULE PO SCH (09:00)
[2020-12-07] MEDS ORDERED: FLUO20CA23 PO (17:18)
[2020-12-07] MEDS ORDERED: TRAZ50TA66 PO (17:18)
== END 2020-11-29 17:00 | disposition home or self-care (01) ==
LOC: ED 16:17
DX: R45.851 Suicidal ideations (principal); Z20.822 Contact with and (suspected) exposure to COVID-19; F32.9 Major depressive disorder, single episode, unspecified; I10 Essential (primary) hypertension; Z21 Asymptomatic human immunodeficiency virus [HIV] infection status; G89.29 Other chronic pain; Z87.891 Personal history of nicotine dependence
CPT/HCPCS: 36415; 80053; 80299; 80307; 80320; 80329; 85025; 87426; 99285; G0480

== ENCOUNTER 2020-12-14 03:33 | Emergency (ER) | payer MEDICARE, MEDICAID ==
[~2020-12-14] VITALS: Ht 180.3 cm; Wt 62.6 kg
[2020-12-14 03:40] VITALS: BP 111/81
== END 2020-12-14 05:17 | disposition home or self-care (01) ==
LOC: ED 03:40
DX: S06.0X0A Concussion without loss of consciousness, initial encounter (principal); E87.6 Hypokalemia; R55 Syncope and collapse; R94.31 Abnormal electrocardiogram [ECG] [EKG]; I10 Essential (primary) hypertension; Z21 Asymptomatic human immunodeficiency virus [HIV] infection status; Z87.891 Personal history of nicotine dependence; W18.30XA Fall on same level, unspecified, initial encounter; Y93.89 Activity, other specified; Y92.89 Other specified places as the place of occurrence of the external cause; Y99.8 Other external cause status